=== PATIENT | female | born 1935 | race Caucasian/White ===

== ENCOUNTER 2019-06-27 16:28 | Emergency (ER) | payer MEDICARE ==
[2019-06-27 17:38] VITALS: BP 129/78
--- NOTE | 2019-06-27 17:41 | UC ---
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 States she sees PCP for this problem but noticed she's going more frequently. Pt denies dysuria. No fever. Has PCP appt in July for urinary and stool incontinence. 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/Roading Engineer Pain Intensity: 0 - Allergy/Home Medications Allergies/Adverse Reactions: Allergies Allergy/AdvReac Type Severity Reaction Status Date / Time No Known Allergies Allergy Verified 06/27/19 17:28 Home Medications: Home Medications Citalopram TAB* [CeleXA TAB*] 10 mg PO DAILY 06/27/19 [History Confirmed ] Megestrol TAB* [Megace TAB*] 20 mg DAILY 06/27/19 [History Confirmed 06/27/19] Methylphenidate TAB* [Ritalin TAB*] 10 mg PO DAILY 06/27/19 [History Confirmed 06/27/19] ceFUROXime 250 MG TAB [Ceftin TAB 250 MG(*)] 250 mg PO BID #20 tab 06/27/19 [Rx] PMH/Surg Hx/FS Hx/Imm Hx Previously Healthy: No - Surgical History Surgical History: Yes Surgery Procedure, Year, and Place: hip and pelvic fracture s/p fall - Family History Known Family History: Positive: Non-Contributory - Social History Alcohol Use: None Substance Use Type: None Smoking Status (MU): Former Smoker Review of Systems All Other Systems Reviewed And Are Negative: Yes Constitutional: Positive: Negative Skin: Positive: Other - see hpi Eyes: Positive: Negative ENT: Positive: Negative Respiratory: Positive: Other - see hpi Cardiovascular: Positive: Other - see hpi Gastrointestinal: Positive: Other - see hpi Genitourinary: Positive: Other - see hpi Motor: Positive: Other - see hpi Neurovascular: Positive: Other - see hpi Musculoskeletal: Positive: Other: - see hpi Neurological/Mental Status: Positive: Negative Psychological: Positive: Negative Is Patient Immunocompromised?: No Physical Exam Triage Information Reviewed: Yes Appearance: Well-Appearing - sitting up, conversing easily, nad, nontoxic general appearance, Thin Vital Signs: Initial Vital Signs Temp 98.5 F 06/27/19 17:29 Pulse 86 06/27/19 17:29 Resp 16 06/27/19 17:29 BP 129/78 06/27/19 17:29 Pulse Ox 98 06/27/19 17:29 Vital Signs Reviewed: Yes Eye Exam: Normal ENT Exam: Normal - grossly nonfocal ENT: Positive: Pharynx normal, Other - lips a little dry but tongue moist Neck exam: Other - + kyphosis and c/w arthritis Respiratory Exam: Other - Poor full inspiration, but bs equal and clear as auscultated Respiratory: Positive: No respiratory distress, No accessory muscle use Cardiovascular Exam: Other - + 4/6 systolic murm at lsb hr correlates with L radial pulse Cardiovascular: Positive: Pulses Normal, Brisk Capillary Refill Abdominal Exam: Normal - + bs, soft, nd, nt no cvat Musculoskeletal Exam: Normal - moves x 4 ext's gait slow, steady Musculoskeletal: Positive: Edema @ - BLE edema c/w pvd, venous insuff scattered hemosiderosis noted Neurological Exam: Normal - grossly nonfocal Psychological Exam: Normal - pleasant smiles, converses easily responds appropriatelyl Skin Exam: Normal - nondiaphoretic Course/Dx - Course Course Of Treatment: Very thin. Will dose 250mg po bid x 10 days. See avs. Questions as posed by pt and her daughter answered to the best of my ability. - Diagnoses Provider Diagnosis: UTI (urinary tract infection) Discharge ED - Discharge Plan Condition: Stable Disposition: HOME Prescriptions: ceFUROXime 250 MG TAB [Ceftin TAB 250 MG(*)] 250 mg PO BID #20 tab Patient Education Materials: Urinary Tract Infection in Older Adults (ED), Hematuria (ED), Dehydration (ED) Referrals: Kimberly Nj PA [Primary Care Provider] - Additional Instructions: Please hydrate. Your urine is concentrated, indicating that you should drink more water. Your urine dip noted trace blood. It is important that your urine be rechecked when you are feeling better and the infection has been treated. Please follow up with your primary care provider, if possible in a week. Please go to the Emergency Department for any worse or new problems, including albeit not limited to weakness, nausea / vomiting, shortness of breath, fever, flu-like symptoms with or without fever, pain. Urine culture has been sent. You will be notified if you need an alternate antibiotic. - Billing Disposition and Condition Condition: STABLE Disposition: Home
--- NOTE | 2019-06-30 09:13 | UC ---
- Progress Note Progress Note: urine culture negative. Can stop antibiotics. Recheck with PCP Course/Dx - Diagnoses Provider Diagnoses: UTI (urinary tract infection) Discharge ED - Sign-Out/Discharge Documenting (check all that apply): Patient Departure All imaging exams completed and their final reports reviewed: No Studies - Discharge Plan Condition: Stable Disposition: HOME Prescriptions: ceFUROXime 250 MG TAB [Ceftin TAB 250 MG(*)] 250 mg PO BID #20 tab Patient Education Materials: Dehydration (ED), Hematuria (ED), Urinary Tract Infection in Older Adults (ED) Referrals: Kimberly Nj PA [Primary Care Provider] - Additional Instructions: Please hydrate. Your urine is concentrated, indicating that you should drink more water. Your urine dip noted trace blood. It is important that your urine be rechecked when you are feeling better and the infection has been treated. Please follow up with your primary care provider, if possible in a week. Please go to the Emergency Department for any worse or new problems, including albeit not limited to weakness, nausea / vomiting, shortness of breath, fever, flu-like symptoms with or without fever, pain. Urine culture has been sent. You will be notified if you need an alternate antibiotic. - Billing Disposition and Condition Condition: STABLE Disposition: Home
== END 2019-06-27 18:23 | disposition home or self-care (01) ==
LOC: UCCORT 16:28
DX: N39.0 Urinary tract infection, site not specified (principal)
CPT/HCPCS: 81003; 87086; 99202; G0463